=== PATIENT | female | born 1975 | race Caucasian/White ===

== ENCOUNTER 2018-02-05 15:29 | Emergency (ER) | payer OTHER ==
--- NOTE | 2018-02-05 15:55 | ED PSYCHIATRIC COMPLAINT ---
History of Present Illness General Chief Complaint: Altered Mental Status Stated Complaint: BIBA ?OVERDOSE Source: patient, police Exam Limitations: confusion, intoxication Vital Signs & Intake/Output Vital Signs & Intake/Output Vital Signs Date Time Temp Pulse Resp B/P B/P Pulse O2 O2 Flow FiO2 Mean Ox Delivery Rate 02/06 0911 98.2 68 18 94/76 99 Room Air Room Air 02/06 0756 98 Room Air 02/06 0622 104/50 02/06 0147 97.4 64 18 139/86 99 Room Air 02/05 2247 98.2 60 20 136/87 98 Room Air 02/05 1919 98.1 56 20 120/78 97 Room Air 02/05 1540 Room Air Room Air 02/05 1536 98.8 54 20 156/83 97 Room Air ED Intake and Output 02/06 0000 02/05 1200 Intake Total 0 Output Total Balance 0 Intake, Oral 0 Allergies Coded Allergies: No Known Allergies (02/05/18) Triage Nurses Notes Reviewed? yes Onset: Abrupt Duration: unknown duration Timing: recent history : No Patient currently breastfeeds: No HPI: 43-year-old female brought to the emergency room after being found by police with altered mental status. Patient was reportedly in her hotel room. He was apparently empty wine bottles. Her 12-year-old daughter had been locked out of the room. She has a history of reported substance abuse. She currently denies taking any drugs. He is very limited secondary to patient being very sedated and intoxicated appearing. She received 0.4 mg of Narcan in the field which seemed to wake her up slightly. (Gamaliel Marino) Reconcile Medications Zolpidem Tartrate (Ambien) 10 MG TABLET 1 TAB PO QPMP SLEEP HELP (Reported) (Keith PINO,Mich Snow) Past History Travel History Traveled to [place] past 21 day No Medical History Any Pertinent Medical History? see below for history Neurological: NONE EENT: NONE Cardiovascular: NONE Respiratory: NONE Gastrointestinal: GASTRIC BIPASS Hepatic: NONE Renal: NONE Musculoskeletal: BACK SURGERIES Psychiatric: DRUG ABUSE Endocrine: NONE Blood Disorders: NONE Cancer(s): NONE Surgical History Surgical History: non-contributory Psychosocial History What is your primary language Slovenian Tobacco Use: Never used ETOH Use: occasional use Illicit Drug Use: benzodiazepines, OPIATES Family History Hx Contributory? No (Gamaliel Marino) Review of Systems Review of Systems Constitutional: Reports: no symptoms. EENTM: Reports: no symptoms. Respiratory: Reports: no symptoms. Cardiovascular: Reports: no symptoms. GI: Reports: no symptoms. Genitourinary: Reports: no symptoms. Musculoskeletal: Reports: no symptoms. Skin: Reports: no symptoms. Neurological/Psychological: Reports: see HPI. Hematologic/Endocrine: Reports: no symptoms. Immunologic/Allergic: Reports: no symptoms. All Other Systems: Reviewed and Negative (Gamaliel Marino) Physical Exam Physical Exam General Appearance: lethargic, mild distress, intoxicated Head: atraumatic Eyes: Bilateral: normal appearance, PERRL. Ears, Nose, Throat: normal ENT inspection, hearing grossly normal Neck: normal inspection Respiratory: no respiratory distress Cardiovascular: regular rate/rhythm Extremities: normal range of motion Neurological/Psychiatric: RESPONDS TO VERBAL STIMULI, ORIENTEDX2 Appearance/Memory/Insight: disheveled, impaired insight Behavoir/Eye Contact/Speech: decreased rate of speech Skin: intact, normal color, warm/dry SAD PERSONS Done? patient not suicidal (Gamaliel Marino) Progress Differential Diagnosis: dementia, drug intoxication, drug overdose, drug withdrawal, electrolyte abnormality, encephalitis, hypoglycemia, hypothyroidism, IC hem/mass/tumor, meningitis Plan of Care: Orders Procedure Date/time Status Regular Diet 02/06 B Active ED CRISIS PSYCH CONSULT 02/05 1638 Active Patient Safety Monitor 02/05 1613 Active URINE DRUGS OF ABUSE 02/05 1534 Complete URINE 02/05 1534 Complete URINALYSIS 02/05 1534 Complete ETHANOL 02/05 1534 Complete COMPREHENSIVE METABOLIC PANEL 02/05 1534 Complete CBC WITHOUT DIFFERENTIAL 02/05 1534 Complete EKG 02/05 1534 Active Current Medications Sig/Jimmy Start time Last Medication Dose Stop Time Status Admin Zolpidem Tartrate 10 MG AT BEDTIME 02/06 2100 UNVr (Freida) Laboratory Tests 02/05/18 1600: Urine Opiates Screen < 100, Methadone Screen < 40, Barbiturate Screen < 60, Ur Phencyclidine Scrn < 6.00, Amphetamines Screen < 100, U Benzodiazepines Scrn < 85, Urine Cocaine Screen < 50, Urine Cannabis Screen < 5.00, Urine Color YEL, Urine Clarity CLEAR, Urine pH 6.0, Ur Specific [place] 1.015, Urine Protein NEG, Urine Ketones NEG, Urine Nitrite NEG, Urine Bilirubin NEG, Urine Urobilinogen 0.2, Ur Leukocyte Esterase NEG, Ur Microscopic EXAM NOT REQUIRED, Urine Hemoglobin NEG, Urine Glucose NEG, Urine Test NEGATIVE 02/05/18 1546: Anion Gap 11, Estimated GFR > 60, BUN/Creatinine Ratio 11.1, Glucose 142 H, Calcium 9.7, Total Bilirubin 0.5, AST 29, ALT 37, Alkaline Phosphatase 78, Total Protein 7.0, Albumin 4.6, Globulin 2.4, Albumin/Globulin Ratio 1.9, CBC w Diff NO MAN DIFF REQ, RBC 4.08 L, MCV 95.7, MCH 32.5 H, MCHC 33.9, RDW 12.3, MPV 8.6, Gran % 70.9, Lymphocytes % 19.9 L, Monocytes % 7.9, Eosinophils % 1.1, Basophils % 0.2, Absolute Granulocytes 5.3, Absolute Lymphocytes 1.5, Absolute Monocytes 0.6, Absolute Eosinophils 0.1, Absolute Basophils 0, Serum Alcohol 23.0 Diagnostic Imaging: Viewed by Me: CT Scan. Discussed w/RAD: CT Scan. Radiology Impression: PATIENT: ELIZABETH BENÍTEZ PRESENT AGE: 43 PATIENT ACCOUNT NO: [id number] : 77 LOCATION: [facility] ORDERING PHYSICIAN: Gamaliel NAM SERVICE DATE: 02/05/18 EXAM TYPE : CAT - CT HEAD WO IV CONTRAST EXAMINATION: CT HEAD WITHOUT CONTRAST CLINICAL INFORMATION: Altered mental status. COMPARISON: None. TECHNIQUE: Contiguous axial imaging was performed from the skull base to vertex without intravenous administration of contrast. DLP: 607 mGy-cm. FINDINGS: There is no intracranial hemorrhage, large infarction, or mass lesion. There is no extra-axial collection. The ventricles are normal in size and configuration without evidence of hydrocephalus. The visualized paranasal sinuses and mastoid air cells are clear. IMPRESSION: No acute intracranial abnormality. DICTATED BY: Kimberly Shen MD DATE/TIME DICTATED:02/05/181708 COMPLIANCE INTERN:ELA DATE/TIME TRANSCRIBED:02/05/181708 CONFIDENTIAL, DO NOT COPY WITHOUT APPROPRIATE AUTHORIZATION. <Electronically signed in Other Vendor System> SIGNED BY: Kimberly Shen MD 08/13/18 1716 Initial ED EKG: normal sinus rhythm, rate (49) Hand-Off Endorsed To: Keith PINO,[place] Snow Endorsed Time: 2238 Pending: consult (crisis re-evaluation) (Gamaliel Marino) Comments: Patient has been seen and reevaluated by cardiac cath technician. Patient is stable for discharge. (Jarocho PINO,[address]) Departure Departure Disposition: HOME OR SELF CARE Condition: Stable Clinical Impression Primary Impression: Altered mental status Additional Instructions: It is unclear as to what happened to today. It has been recommended that she stay here in the hospital to be further observed for any worsening symptoms. It is imperative that she follow-up with your primary care doctor. You have decided that she wanted to leave AGAINST MEDICAL ADVICE. Return if any other concerns worsening symptoms. Please go over all results of today's visit with your primary care doctor. Contact your primary care doctor to let them know you were here in the emergency room. There may be nonspecific findings which may not be related to your visit today here in the emergency room but may require further evaluation and chronic monitoring by your primary care doctor. If you had a laceration today the chance of foreign body always remains. You should follow-up with your primary care doctor for recheck in 3-5 days for a wound check. If you had an x-ray done there is a chance that a fracture could have been missed on initial read and you should follow-up with your primary care doctor for repeat x-rays if symptoms persist. If your blood pressure was elevated here in the emergency room please have rechecked by [facility] primary care doctor within the next 48. If you were prescribed a narcotic here in the emergency room or any type of controlled substances you're not allowed to drive while taking this medication or operate any type of heavy machinery. Narcotics can make you feel lightheaded dizziness nausea and can cause constipation. You may need to order picker/assembler a stool softener. Thank you for choosing [facility] emergency room. Please return to the emergency room immediately if you have any other concerns worsening of symptoms. Departure Forms: Customer Survey General Discharge Information (Gamaliel Marino) Departure Comments 02/06/18, 7am... pt signed out to richie phelps to evaluate in AM. PA/CONTROL INSPECTOR Co-Sign Statement Statement: ED Attending supervision documentation- [] I saw and evaluated the patient. I have also reviewed all the pertinent lab results and diagnostic results. I agree with the findings and the plan of care as documented in the PA's/CONTROL INSPECTOR's documentation. [x] I have reviewed the ED Record and agree with the PA's/CONTROL INSPECTOR's documentation. [] Additions or exceptions (if any) to the PAs/CONTROL INSPECTOR's note and plan are summarized below: [] (Keith PINO,[place] Snow)
[2018-02-05 16:08] LABS: ABSOLUTE BASOPHIL COUNT 0 /CUMM (0.0-0.2); ABSOLUTE EOSINOPHIL COUNT 0.1 /CUMM (0.0-0.7); ABSOLUTE GRANULOCYTE CT 5.3 /CUMM (1.4-6.5); ABSOLUTE LYMPH COUNT 1.5 /CUMM (1.2-3.4); ABSOLUTE MONOCYTE COUNT 0.6 /CUMM (0.10-0.60); BASOPHIL % 0.2 % (0.0-2.0); EOSINOPHIL % 1.1 % (0-5); GRANULOCYTE % 70.9 % (42.2-75.2); HEMATOCRIT 39.1 % (37-47); MEAN CORPUSCULAR HGB 32.5 PG (27.0-31.0); MEAN CORPUSCULAR HGB CONC 33.9 G/DL (33.0-37.0); MEAN CORPUSCULAR VOLUME 95.7 FL (81.0-99.0); MEAN PLATELET VOLUME 8.6 FL (7.4-10.4); PLATELET COUNT 216 /CUMM (130-400); RBC DISTRIBUTION WIDTH 12.3 % (11.5-14.5); RED BLOOD CELL CT 4.08 /CUMM (4.20-5.40); WHITE BLOOD CELL COUNT 7.4 /CUMM (4.8-10.8)
--- NOTE | 2018-02-05 17:16 | CT SCAN REPORT ---
EXAMINATION: CT HEAD WITHOUT CONTRAST CLINICAL INFORMATION: Altered mental status. COMPARISON: None. TECHNIQUE: Contiguous axial imaging was performed from the skull base to vertex without intravenous administration of contrast. DLP: 607 mGy-cm. FINDINGS: There is no intracranial hemorrhage, large infarction, or mass lesion. There is no extra-axial collection. The ventricles are normal in size and configuration without evidence of hydrocephalus. The visualized paranasal sinuses and mastoid air cells are clear. IMPRESSION: No acute intracranial abnormality.
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
[2018-02-05] MEDS ORDERED: AMBIEN10 M1 PO (22:48)
[2018-02-06 09:26] VITALS: BP 102/64
== END 2018-02-06 09:26 ==
LOC: ERH 15:29
PROVIDERS: Physician Assistant Medical
DX: R41.82 Altered mental status, unspecified (principal); F10.10 Alcohol abuse, uncomplicated; F11.10 Opioid abuse, uncomplicated
CPT/HCPCS: 80307; 81003; 81025; 93005; 93010; 96374; G0463; G0480; J2310